=== PATIENT | female | born 1980 | race Hispanic/Latino ===

== ENCOUNTER 2020-01-30 08:54 | Outpatient (CLI) | payer BC ==
--- NOTE | 2020-01-30 09:23 | RAD ---
LEFT KNEE 2 VIEWS: HISTORY: Left knee pain. FINDINGS/IMPRESSION: No fracture, dislocation, or bone destruction is seen. POS: OFF
== END 2020-01-30 08:55 | disposition home or self-care (01) ==
LOC: BICRAD 08:54
PROVIDERS: ATTEND Family Medicine
DX: M25.562 Pain in left knee (principal)
CPT/HCPCS: 36415; 80053; 80061; 81001; 83520; 84443; 85025; 85652; 86038; 86225

== ENCOUNTER 2020-03-26 13:58 | Outpatient (CLI) | payer BC ==
--- NOTE | 2020-03-26 14:25 | ULT ---
EXAM: Bilateral lower extremity venous Doppler US HISTORY: bilateral lower extremity edema and pain FINDINGS: Grayscale, color-flow, Doppler evaluation, spectral analysis of the bilateral lower extremities venou s structures is performed with 2-D imaging. The bilateral common femoral, superficial femoral, popliteal, posterior tibial, proximal greater saphenous and profunda femoral veins are imaged. There is normal luminal compressibility, flow, and augmentation in the visualized deep venous structu res of the bilateral lower extremities. IMPRESSION: No evidence of a deep vein thrombosis in either lower extremity.
== END 2020-03-26 13:59 | disposition home or self-care (01) ==
LOC: BICULT 13:58
PROVIDERS: ATTEND Family Medicine
DX: I83.813 Varicose veins of bilateral lower extremities with pain (principal)
CPT/HCPCS: 93970

== ENCOUNTER 2020-04-08 09:53 | Outpatient (CLI) | payer BC ==
--- NOTE | 2020-04-08 11:05 | MRI ---
MRI Lower Ext Jt Lt WO Con History: Acute pain of left knee Comparison: Knee radiograph January 30, 2020 Findings: Medial meniscus: Intact Lateral meniscus: Intact ACL, PCL, MCL and LCL are all intact. Since mechanism: Quadriceps tendon, patella and patellar tendon are intact. Cartilage: Patellofemoral compartment: 25-50% chondral fissures and fraying with some adjacent delamination stanislav g the patellar apex and lateral patellar facet. No full-thickness defect. Low-grade chondral fraying of the central trochlear groove. Medial compartment: Intact Lateral compartment: Intact Posterior flexion zones are intact. Muscles: Muscle signal and bulk is normal. Soft tissues: Normal volume of joint fluid. No significant popliteal cyst. Impression: 1. 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 2. Intact menisci and cruciate ligaments.
== END 2020-04-08 09:54 | disposition home or self-care (01) ==
LOC: BICMRI 09:53
PROVIDERS: ATTEND Family Medicine
DX: M25.562 Pain in left knee (principal); M22.42 Chondromalacia patellae, left knee